=== PATIENT | female | born 1955 | race Caucasian/White ===

== ENCOUNTER 2016-03-15 11:28 | Day surgery (SDC) | payer OTHER ==
[~2016-03-15 11:28] MED LIST: ACET500CAP PO; ADVIL PO; ALEVE220 MG PO; AMB10 PO; ASAB PO; ATV1 PO; BEN25 PO; BENEFIBE5 PO; CALCIUM GUMMY PO; CARASPUDL PO; DSS PO; ENDOCET1 TA1 PO; ERY-TAB250 MG PO; FISH OIL GUMMY PO; GAVISCO2 PO; GENTEA1 OP; GENTEAL OPH; GUMMY MVI PO; L40 PO; LIPITOR40 PO; LOP25 PO; LOTREL1 CA1 PO; LOTREL1 CA2 PO; MAALOX PO; MD ANDERSON PO; MIRALAXPKT PO; MULTIVIT/MIN PO; MULTIVITAMIN OR; NATURA2 OP; NORCO1 TA1 PO; PCET PO; PEP10 PO; PEPCID AC OR; PRILO PO; PRILOSEC10 MG PO; SENOKOTS PO; T PO; TEAR OPH; TRAVATAN Z0.004 % OPH; TUMERIC CURCUMIN PO; TUMS E-X750 M2 PO; TUMSROLL PO; VALTREX1 GM PO; VENTOLIN HFA INH; VICODINTAB PO; VITC500 PO; X25 PO; X5 PO; XARELTO15 MG PO; XARELTO20 MG PO; ZINC220C PO
[2016-03-15 11:59] LABS: BASOPHILS 0.4 %; BASOPHILS ABSOLUTE 0.03 10/3/uL (0.0-0.16); EOSINOPHILS 2.7 %; EOSINOPHILS ABSOLUTE 0.22 10/3/uL (0.0-0.53); HEMATOCRIT 36.4 % (36.0-48.0); HEMOGLOBIN 11.6 g/dL (12.0-16.0); IMMATURE GRANULOCYTES 0.1 %; IMMATURE GRANULOCYTES ABSOLUTE 0.01 10/3/uL (0.0-0.11); LYMPHOCYTES 15.1 %; LYMPHOCYTES ABSOLUTE 1.21 10/3/uL (0.67-4.30); MEAN CORPUSCULAR HEMOGLOB 28.6 pg (26.0-34.0); MEAN CORPUSCULAR VOLUME 89.7 fL (80-100); MEAN PLATELET VOLUME 9.9 fL (9.2-13.0); MONOCYTES 16.3 %; MONOCYTES ABSOLUTE 1.31 10/3/uL (0.21-1.20); NEUTROPHILS 65.4 %; NEUTROPHILS ABSOLUTE 5.24 10/3/uL (2.02-8.40); RBC DISTRIBUTION WIDTH 15.2 % (12.0-16.0); RED CELL COUNT 4.06 10/6/uL (4.0-5.6)
[2016-03-15 12:00] LABS: MEAN CORPUS HGB CONC 31.9 g/dL (32.0-36.0); PLATELET COUNT 441 10/3/uL (150-400)
[2016-03-15 12:01] LABS: MANUAL DIFF NO %
[2016-03-15 12:05] LABS: INTERNATIONAL NORMAL RATI 1.3 UNITS (-); PARTIAL THROMBO TIME 37.4 SEC (22.5-37.2); PROTIME (NOT ORD) 15.7 SEC (12.0-14.5)
== END 2016-03-15 23:59 | disposition home or self-care (01) ==
LOC: DMU 11:28
PROVIDERS: Anesthesiology; Physician Assistant Medical
PROC: 0W9930Z Drainage of Right Pleural Cavity with Drainage Device, Percutaneous Approach (ICD-10-PCS; principal; 2016-03-15 13:00)
DX: J90 Pleural effusion, not elsewhere classified (principal); I10 Essential (primary) hypertension; J44.9 Chronic obstructive pulmonary disease, unspecified; M19.90 Unspecified osteoarthritis, unspecified site; K21.9 Gastro-esophageal reflux disease without esophagitis; Z53.8 Procedure and treatment not carried out for other reasons; Z88.0 Allergy status to penicillin; Z79.899 Other long term (current) drug therapy; Z98.890 Other specified postprocedural states
CPT/HCPCS: 85025; 85610; 85730